=== PATIENT | male | born 1970 | race Caucasian/White ===

== ENCOUNTER 2018-10-20 00:54 | Emergency (ER) | payer MEDICAID, OTHER ==
[~2018-10-20] VITALS: Ht 177.8 cm; Wt 114.0 kg
[2018-10-20] MEDS ORDERED: TETANUS, DIPHTHERIA, PERTUSSIS VAC/PF 0.5ML (>7YR OLD) IM ONE (02:00)
[2018-10-20] MEDS ORDERED: LORAZEPAM 2MG/ML CPJ IV ONE (02:00)
[2018-10-20] MEDS ORDERED: LIDOCAINE HCL 1%/EPI 1:200,000 30 ML VIAL MC ONE (02:00)
[2018-10-20] MEDS ORDERED: LORAZEPAM 2MG/ML CPJ IM ONE (02:00)
[2018-10-20] MEDS ORDERED: DIPHENHYDRAMINE 50MG/ML VIAL IV ONE (02:15)
[2018-10-20] MEDS ORDERED: HALOPERIDOL LACTATE 5MG/ML VIAL IM ONE (02:15)
[2018-10-20] MEDS ORDERED: LIDOCAINE 1%/EPI 1:100,000 10 ML VIAL IJ NR (02:45)
[2018-10-20] MEDS ORDERED: BACITRACIN ZINC OINT UDPKT TOP ONE (04:00)
[2018-10-20] MEDS ORDERED: KETOROLAC 60MG/2ML VIAL IM ONE (04:15)
[2018-10-20] MEDS ORDERED: KETOROLAC 30MG/ML VIAL IV ONE (04:15)
[2018-10-20] MEDS ORDERED: CEFTRIAXONE 1 G PREMIX 50 ML IV ONE (04:15)
[2018-10-20] MEDS ORDERED: CEFTRIAXONE SODIUM 1 G/VIAL IM ONE (04:15)
[2018-10-20 04:38] VITALS: BP 138/96
== END 2018-10-20 04:45 | disposition home or self-care (01) ==
LOC: ER 00:54
DX: S20.212A Contusion of left front wall of thorax, initial encounter (principal); S01.312A Laceration without foreign body of left ear, initial encounter; Y08.89XA Assault by other specified means, initial encounter; Y93.89 Activity, other specified; Y92.511 Restaurant or cafe as the place of occurrence of the external cause
CPT/HCPCS: 12014; 70450; 71100; 90471; 90715; 96365; 96372; 96375; 99284; J0696; J1200; J1630; J1885; J2060; J3490